=== PATIENT | male | born 1970 | race African-American/Black ===

== ENCOUNTER 2018-03-24 19:31 | Emergency (ER) | payer BC ==
[2018-03-24] MEDS ORDERED: NA CHLORIDE 0.9% 0 ML ONE (20:06)
[2018-03-24] MEDS ORDERED: ACETAMINOPHEN 500 MG TAB ONE ×2 (20:08→20:11)
[2018-03-24] MEDS ORDERED: NA CHLORIDE 0.9% 1,000 ML ONE (20:09)
[2018-03-24 20:28] LABS: Absolute Lymphocytes (CBC) 2.9 K/uL (0.7-4.9); Absolute Monocytes 0.6 K/uL (0.1-1.3); Absolute Neutrophil 4.5 K/uL (1.8-8.0); Basophils % 0.5 % (0-1.3); Eosinophils % 4.2 % (0-4.4); Hematocrit 40.6 % (39.6-49.0); Lymphocytes % 34.3 % (15.3-44.8); MCH 27.4 pg (27.0-35.0); MCV 80.8 fL (80-100); Monocytes % 7.1 % (3.3-12.3); RBC Red Blood Cell Count 5.03 M/uL (4.33-5.43)
[2018-03-24 20:31] LABS: Protime INR 1.03
[2018-03-24 20:32] LABS: Bicarbonate 28 mEq/L (21-31); Glucose Level 152 mg/dL (65-120); Potassium 3.9 mEq/L (3.6-5.0); Sodium Level 137 mEq/L (135-145)
[2018-03-24 20:38] LABS: ALT/SGPT 31 IU/L (10-60); AST/SGOT 25 IU/L (10-42); Albumin 4.1 g/dL (3.2-5.5); Alkaline Phosphatase 63 IU/L (42-121); BUN Blood Urea Nitrogen 15 mg/dL (6-20); Bilirubin Direct 0.1 mg/dL (0-0.2); Bilirubin Total 0.5 mg/dL (0.3-1.2); Magnesium 1.6 mg/dL (1.8-2.5); Protein, Total 7.6 g/dL (6.0-8.3)
--- NOTE | 2018-03-24 20:40 | RAD REPORT ---
EXAM DESCRIPTION: CT - Head Brain Wo Cont - 03/24/2018 8:18 pm CLINICAL HISTORY: Headache since Saturday COMPARISON: 2012 TECHNIQUE: Computed axial tomography of the head was obtained. IV contrast was not requested. All CT scans are performed using dose optimization technique as appropriate and may include automated exposure control or mA/KV adjustment according to patient size. FINDINGS: An intracranial bleed is not seen . The ventricles are normal in caliber. No extra-axial fluid collection is noted. Fluid within the sinuses/ mastoids is not seen. IMPRESSION: No acute intracranial abnormality is seen. If patient's symptoms persist MRI of the bra in would be recommended.
--- NOTE | 2018-03-24 22:25 | ER ---
Nurse's Notes [facility] Name: Brady Lloyd Age: 47 yrs Sex: Male : 1970 Arrival Date: 03/24/2018 Time: 19:32 Bed 7 Private MD: Lenin Trujillo Diagnosis: Headache;Hypertensive heart disease Presentation: 03/24 19:48 Presenting complaint: Patient states: headache to forehead since noon. pt c/o increased ak1 blood pressure at home. pt c/o dizziness with ambulation. Transition of care: patient was not received from another setting of care. Onset of symptoms was March 24, 2018. Risk Assessment: Do you want to hurt yourself or someone else? Patient reports no desire to harm self or others. Initial Sepsis Screen: Does the patient meet any 2 criteria? No. Patient's initial sepsis screen is negative. Does the patient have a suspected source of infection? No. Patient's initial sepsis screen is negative. Care prior to arrival: None. 19:48 Method Of Arrival: Ambulatory ak1 19:48 Acuity: CORIN 3 ak1 Triage Assessment: 19:52 General: Appears in no apparent distress. General: Appears. Pain: Complains of pain in ak1 forehead. Pain: Pain began at noon Also complains of dizziness. 22:39 Headache History: Denies prior headaches. General: Behavior is calm, cooperative, rv appropriate for age. Pain:. Historical: - Allergies: 19:52 No Known Allergies; ak1 - Home Meds: 19:52 metformin 1,000 mg Oral tr24 [Active]; Novolin 70/30 [place] Sub-Q [Active]; amlodipine ak1 besylate 100mg [Active]; - PMHx: 19:52 Diabetes - NIDDM; Hypertension; ak1 - PSHx: 19:52 None; ak1 - Immunization history:: Adult Immunizations unknown. - Social history:: Smoking status: Patient/guardian denies using tobacco. - Ebola Screening: : No symptoms or risks identified at this time. Screenin:51 Abuse screen: Denies threats or abuse. Denies injuries from another. Nutritional bp screening: No deficits noted. Tuberculosis screening: No symptoms or risk factors identified. Fall Risk None identified. Assessment: 19:49 General: Appears in no apparent distress. uncomfortable, obese, Behavior is calm, bp cooperative, appropriate for age. Pain: Complains of pain in head Pain currently is 7 out of 10 on a pain scale. Neuro: Level of Consciousness is awake, alert, obeys commands, Oriented to person, place, time, situation, Appropriate for age. Cardiovascular: Rhythm is sinus rhythm. Respiratory: Airway is patent Respiratory effort is even, unlabored, Respiratory pattern is regular, symmetrical. GI: No signs and/or symptoms were reported involving the gastrointestinal system. : No signs and/or symptoms were reported regarding the genitourinary system. EENT: No deficits noted. Derm: No deficits noted. Musculoskeletal: Circulation, motion, and sensation intact. Range of motion: intact in all extremities. 22:00 Reassessment: ALL CURRENT ORDERS COMPLETED, PT AFFIRMS RELIEF OF S/S, NORMO-TENSIVE ON bp MONITOR. 22:40 Reassessment: PT D/C HOME AMBULATORY, EXPRESSING RELIEF OF S/S. mg2 Vital Signs: 19:47 BP 182 / 121; Pulse 92; Resp 20; Temp 98.2(TE); Pulse Ox 99% on R/A; Weight 88 kg (R); ak1 Height 5 ft. 3 in. (160.02 cm) (R); Pain 7/10; 21:27 BP 145 / 97; Pulse 74; Resp 19; Pulse Ox 99% on R/A; rv 22:00 BP 144 / 91; Pulse 70; Resp 17; Pulse Ox 99% ; bp 19:47 Body Mass Index 34.37 (88.00 kg, 160.02 cm) ak1 ED Course: 19:32 Patient arrived in ED. es 19:32 Lenin Trujillo MD is Private Physician. es 19:35 Jeffry Vera MD is Attending Physician. kdr 19:44 Adrien Britt, NAUN is Primary Nurse. bp 19:47 Arm band placed on Patient placed in an exam room, in the treatment room, on pulse ak1 oximetry, Patient notified of wait time. 19:50 Triage completed. ak1 19:51 Patient has correct armband on for positive identification. Bed in low position. Call bp light in reach. Side rails up X2. 20:14 XRAY Chest (1 view) In Process Unspecified. EDMS 20:14 X-ray completed. Portable x-ray completed in exam room. Patient tolerated procedure ag1 well. 20:18 CT completed. Patient moved to CT via wheelchair. Patient moved back from CT. cw1 20:18 CT Head Brain wo Cont In Process Unspecified. EDMS 20:32 Initial lab(s) drawn, by me, sent to lab. EKG done, by ED staff. Inserted saline lock: mg2 20 gauge in right antecubital area, using aseptic technique. Blood collected. 22:24 Lenin Trujillo MD is Referral Physician. kdr 22:37 No provider procedures requiring assistance completed. rv 22:38 IV discontinued, intact, bleeding controlled, No redness/swelling at site. Pressure rv dressing applied. Administered Medications: 20:31 Drug: NS 0.9% 1000 ml Route: IV; Rate: 1 bolus; Site: right antecubital; mg2 20:31 Drug: Tylenol 1000 mg Route: PO; mg2 Outcome: 22:24 Discharge ordered by MD. kdr 22:37 Discharged to home ambulatory. rv 22:37 Condition: stable 22:37 Discharge instructions given to patient. 22:40 Patient left the ED. rv Signatures: Dispatcher [employer] EDMS Jeffry Vera MD MD kdr Socorro Lester Crystal cw1 Debbi Morillo, RN RN ak1 Vi Villalta ag1 Adrien Britt, RN RN bp Star Martinez, NAUN MAGALLON mg2 Kris Maradiaga, NAUN RN rv Corrections: (The following items were deleted from the chart) 22:16 21:00 BP 145 / 97; Pulse 78bpm; Resp 18bpm; Pulse Ox 99%; bp bp
--- NOTE | 2018-03-24 22:25 | EDPHYS ---
Physician Documentation [facility] Name: Brady Lloyd Age: 47 yrs Sex: Male : 1970 Arrival Date: 03/24/2018 Time: 19:32 Bed 7 Private MD: Lenin Trujillo ED Physician Jeffry Vera HPI: 03/24 20:24 This 47 yrs old Black Male presents to ER via Ambulatory with complaints of Headache, kdr Blood Pressure Problem. 20:24 The patient complains of pain to the top of head and forehead. The patient describes kdr the headache as aching, constant, a pressure, unrelenting. Onset: The symptoms/episode began/occurred this morning, today. Associated signs and symptoms: Pertinent positives: Photophobia Pertinent negatives: altered mental status, dizziness, fever, malaise, nausea, neck stiffness, paresthesias, rash, sinus congestion, sinus tenderness, vision changes, vision loss, vomiting, weakness, vertigo. Severity of symptoms: At its worst the pain was moderate, in the emergency department the pain is unchanged. Headache History: Denies prior headaches. The symptoms are alleviated by nothing. the symptoms are aggravated by nothing. The patient has not experienced similar symptoms in the past. The patient has not recently seen a physician. Historical: - Allergies: 19:52 No Known Allergies; ak1 - Home Meds: 19:52 metformin 1,000 mg Oral tr24 [Active]; Novolin 70/30 [place] Sub-Q [Active]; amlodipine ak1 besylate 100mg [Active]; - PMHx: 19:52 Diabetes - NIDDM; Hypertension; ak1 - PSHx: 19:52 None; ak1 - Immunization history:: Adult Immunizations unknown. - Social history:: Smoking status: Patient/guardian denies using tobacco. - Ebola Screening: : No symptoms or risks identified at this time. ROS: 20:24 Constitutional: Negative for fever, chills, and weight loss, Eyes: Negative for injury, kdr pain, redness, and discharge, ENT: Negative for injury, pain, and discharge, Neck: Negative for injury, pain, and swelling, Cardiovascular: Negative for chest pain, palpitations, and edema, Respiratory: Negative for shortness of breath, cough, wheezing, and pleuritic chest pain, Abdomen/GI: Negative for abdominal pain, nausea, vomiting, diarrhea, and constipation, Back: Negative for injury and pain, : Negative for injury, bleeding, discharge, and swelling, MS/Extremity: Negative for injury and deformity, Skin: Negative for injury, rash, and discoloration, Psych: Negative for depression, anxiety, suicide ideation, homicidal ideation, and hallucinations, Allergy/Immunology: Negative for hives, rash, and allergies, Endocrine: Negative for neck swelling, polydipsia, polyuria, polyphagia, and marked weight changes, Hematologic/Lymphatic: Negative for swollen nodes, abnormal bleeding, and unusual bruising. 20:24 Neuro: Positive for headache, Negative for altered mental status, dizziness, gait disturbance, hearing loss, loss of consciousness, numbness, seizure activity, speech changes, syncope, near syncope, tingling, tinnitus, tremor, visual changes, weakness, acute changes. Exam: 20:24 Constitutional: This is a well developed, well nourished patient who is awake, alert, kdr and in no acute distress. Head/Face: Normocephalic, atraumatic. Eyes: Pupils equal round and reactive to light, extra-ocular motions intact. Lids and lashes normal. Conjunctiva and sclera are non-icteric and not injected. Cornea within normal limits. Periorbital areas with no swelling, redness, or edema. Neck: Trachea midline, no thyromegaly or masses palpated, and no cervical lymphadenopathy. Supple, full range of motion without nuchal rigidity, or vertebral point tenderness. No Meningismus. Chest/axilla: Normal chest wall appearance and motion. Nontender with no deformity. No lesions are appreciated. Cardiovascular: Regular rate and rhythm with a normal S1 and S2. No gallops, murmurs, or rubs. Normal PMI, no JVD. No pulse deficits. Respiratory: Lungs have equal breath sounds bilaterally, clear to auscultation and percussion. No rales, rhonchi or wheezes noted. No increased work of breathing, no retractions or nasal flaring. Abdomen/GI: Soft, non-tender, with normal bowel sounds. No distension or tympany. No guarding or rebound. No evidence of tenderness throughout. Back: No spinal tenderness. No costovertebral tenderness. Full range of motion. Skin: Warm, dry with normal turgor. Normal color with no rashes, no lesions, and no evidence of cellulitis. MS/ Extremity: Pulses equal, no cyanosis. Neurovascular intact. Full, normal range of motion. Neuro: Awake and alert, GCS 15, oriented to person, place, time, and situation. Cranial nerves II-XII grossly intact. Motor strength 5/5 in all extremities. Sensory grossly intact. Cerebellar exam normal. Normal gait. Psych: Awake, alert, with orientation to person, place and time. Behavior, mood, and affect are within normal limits. 20:24 Neuro: Cranial nerves: grossly normal, Cerebellar function: is grossly normal based on the patient's age, no acute changes, Motor: is normal, Gait: is steady, appropriate for age. Vital Signs: 19:47 BP 182 / 121; Pulse 92; Resp 20; Temp 98.2(TE); Pulse Ox 99% on R/A; Weight 88 kg (R); ak1 Height 5 ft. 3 in. (160.02 cm) (R); Pain 7/10; 21:27 BP 145 / 97; Pulse 74; Resp 19; Pulse Ox 99% on R/A; rv 22:00 BP 144 / 91; Pulse 70; Resp 17; Pulse Ox 99% ; bp 19:47 Body Mass Index 34.37 (88.00 kg, 160.02 cm) ak1 MDM: 20:24 Data reviewed: vital signs, nurses notes, lab test result(s), radiologic studies. kdr Counseling: I had a detailed discussion with the patient and/or guardian regarding: the historical points, exam findings, and any diagnostic results supporting the discharge/admit diagnosis, lab results, radiology results. 22:19 ED course: The patient states that his HADLEY is much better. He has no other associated kdr s/s. He will follow-up with his doctor tomorrow . 22:24 Patient medically screened. kdr 03/24 20:03 Order name: LFT's; Complete Time: 21: kdr 03/24 20:03 Order name: Basic Metabolic Panel; Complete Time: : kdr 03/24 20:03 Order name: BNP; Complete Time: 21: kdr 03/24 20:03 Order name: CBC with Diff; Complete Time: 21: kdr 03/24 20:03 Order name: Magnesium; Complete Time: : kdr 03/24 20:03 Order name: PT-INR; Complete Time: 21: [facility] 03/24 20:03 Order name: CT Head Brain wo Cont; Complete Time: : [facility] 03/24 20:03 Order name: Ptt, Activated; Complete Time: [facility] 03/24 20:03 Order name: Troponin (emerg Dept Use Only); Complete Time: : [facility] 03/24 20:03 Order name: XRAY Chest (1 view) [facility] 03/24 20:03 Order name: EKG; Complete Time: 20: [facility] 03/24 20:03 Order name: Cardiac monitoring; Complete Time: 20: [facility] 03/24 20:03 Order name: EKG - Nurse/Tech; Complete Time: 20: [facility] 03/24 20:03 Order name: IV Saline Lock; Complete Time: 20: [facility] 03/24 20:03 Order name: Labs collected and sent; Complete Time: 20: [facility] 03/24 20:03 Order name: O2 Per Protocol; Complete Time: 20: [facility] 03/24 20:03 Order name: O2 Sat Monitoring; Complete Time: 20: [facility] Administered Medications: 20:31 Drug: NS 0.9% 1000 ml Route: IV; Rate: 1 bolus; Site: right antecubital; mg2 20:31 Drug: Tylenol 1000 mg Route: PO; mg2 Disposition: 03/24/18 22:24 Discharged to Home. Impression: Headache, Hypertensive heart disease. - Condition is Stable. - Discharge Instructions: General Headache Without Cause, Hypertension, [id number]. - Medication Reconciliation Form, Thank You Letter form. - Follow up: Lenin Trujillo MD; When: 48 Hours; Reason: If symptoms return, Further diagnostic work-up, Recheck today's complaints, Continuance of care, Re-evaluation by your physician. - Problem is new. - Symptoms have improved. Signatures: Dispatcher [employer] EDMS Jeffry Vera MD MD kdr Debbi Morillo RN RN ak1 Star Martinez RN RN mg2 Kris Maradiaga RN RN rv Corrections: (The following items were deleted from the chart) 22:40 22:24 03/24/2018 22:24 Discharged to Home. Impression: Headache; Hypertensive heart rv disease. Condition is Stable. Forms are Medication Reconciliation Form, Thank You Letter, Antibiotic Education, Prescription Opioid Use. Follow up: Lenin Trujillo; When: 48 Hours; Reason: If symptoms return, Further diagnostic work-up, Recheck today's complaints, Continuance of care, Re-evaluation by your physician. Problem is new. Symptoms have improved. kdr
--- NOTE | 2018-03-24 22:31 | RAD REPORT ---
EXAM DESCRIPTION: Enzo Single View03/24/2018 8:16 pm CLINICAL HISTORY: Chest pain COMPARISON: none FINDINGS: The lungs appear clear of acute infiltrate. The heart is normal size IMPRESSION: No acute abnormalities displayed
--- NOTE | 2018-03-25 06:30 | EKG ---
Test Date: 2018-03-24 Test Time: 19:53:43 Bristle Machine Operator: MEASUREMENT RESULTS: Intervals: Rate: 87 LA: 172 QRSD: 90 QT: 352 QTc: 423 [place]: P: 35 LA: 172 QRS: 46 T: -13 INTERPRETIVE STATEMENTS: Normal sinus rhythm Nonspecific T wave abnormality Abnormal ECG No previous ECG available for comparison Electronically Signed On 03-25-18 06:29:55 CDT by Jeremy Azevedo
--- NOTE | 2018-03-25 15:02 | EKG ---
Test Date: 2018-03-24 Test Time: 19:54:22 Agronomy Teacher: MEASUREMENT RESULTS: Intervals: Rate: 91 WI: 170 QRSD: 88 QT: 348 QTc: 428 [place]: P: 40 WI: 170 QRS: 47 T: -1 INTERPRETIVE STATEMENTS: Normal sinus rhythm Nonspecific T wave abnormality Abnormal ECG Compared to ECG 03/24/2018 19:53:43 No significant changes Electronically Signed On 03-25-18 14:59:11 CDT by Marciano Richter
== END 2018-03-24 22:40 | disposition home or self-care (01) ==
LOC: ER 19:31
DX: I11.9 Hypertensive heart disease without heart failure (principal); I10 Essential (primary) hypertension; E11.9 Type 2 diabetes mellitus without complications; Z79.4 Long term (current) use of insulin
CPT/HCPCS: 36415; 70450; 71045; 80048; 80076; 83735; 83880; 84484; 85025; 85610; 85730; 93005; 99285; J7030